=== PATIENT | female | born 1995 | race Caucasian/White ===

== ENCOUNTER 2018-05-25 18:23 | Inpatient (IN) ==
--- NOTE | 2018-05-25 18:51 | Emergency Department Note ---
Disposition Clinical Impression: Cellulitis of right thigh, Failure of outpatient treatment Disposition: Admitted As Inpatient Condition: Good Referrals: Michelle Berman CNP [Primary Care Provider] - Forms: ED Satisfaction Letter Skin/Abscess/FB HPI Chief complaint: ED Skin/Abscess/Foreign Body Stated complaint: Abscess Time Seen by Provider: 05/25/18 18:32 Source: patient Limitations: no limitations Nursing Notes Reviewed: Yes Vital Signs Reviewed: Yes HPI Narrative: Pt is a 23 year old female that noticed a boil/area of redness on her right medial thigh on Sunday/Sunday of this previous week. It was not improving on its own, so she was seen at her PCP's office on and was put on doxycycline, of which she has received 4 doses. She woke up this morning and noted that the area was far more painful, more red, and had a a raised area. She was sent from urgent care today. She notes that she has a history of "boils " in the area that have had to be lanced, but denies any history of MRSA infections that she knows of. She reports that prior to this episode, she has not had any antibiotics in the last year, but does report an allergy to amoxicillin. ROS: Constitutional: She reports subjective fevers and chills, general malaise MSK: myalgias Abdominal: nausea, no vomiting, no diarrhea All other systems negative. Home Medications Medication Instructions Recorded Confirmed Buspirone HCl [Buspar] 15 mg PO BID 01/29/18 01/29/18 LORazepam [Ativan] 1 mg PO BID PRN 01/29/18 01/29/18 traZODone [TraZODone] 50 mg PO HS 01/29/18 01/29/18 Doxycycline 05/25/18 Hydrocodone-Ibuprofen 5-200 mg 05/25/18 Allergies Allergy/AdvReac Type Severity Reaction Status Date / Time Amoxicillin [From Amoxil] Allergy Rash Verified 05/25/18 17:01 All systems ED: reviewed and negative except as stated. Review of Systems: As Per HPI Past Medical History - Past Medical History Medical history: Reports: no medical history Surgical history: Reports: non-contributory Psychiatric history: Reports: anxiety, depression - Social History Smoking Status: Current every day smoker Smokeless Tobacco Status: No Alcohol use: Reports: none Drug use: Reports: none Physical Exam - General Limitations: no limitations General appearance: alert, anxious - Head Head exam: atraumatic, normocephalic - Eye Eye exam: Present: normal appearance, PERRL, EOMI - ENT ENT exam: normal exam, normal oropharynx, mucous membranes moist - Chest Chest inspection: Present: normal inspection, symmetric chest wall rise - Respiratory Respiratory exam: Present: normal lung sounds bilaterally - Cardiovascular Cardiovascular exam: Present: regular rate, normal rhythm - Expanded Cardiovascular Exam Peripheral pulses: 2+: radial (R), radial (L), posterior tibialis (R), posterior tibialis (L), dorsalis pedis (R), dorsalis pedis (L) - Abdominal Exam Abdominal exam: Present: soft, Non-Tender - Expanded Lower Extremity Exam Upper leg exam: Present: tenderness, swelling, erythema, other (small area of open skin overlying a collection of fluid beneath the skin verified by ultrasound) 1 - 4-5 inch wide area of erythema running from anterior to posterior along the medial side - Neurological Exam Neurological exam: Present: alert, oriented X3 - Expanded Neurological Exam Motor strength - LUE: 5/5 Motor strength - RUE: 5/5 Motor strength - LLE: 5/5 Motor strength - RLE: 5/5 - Psychiatric Psychiatric exam: Present: normal affect, normal mood Course Course Narrative: Pt presented in no acute distress, but looked uncomfortable on the bed. She was tachycardic, hypertensive, and had a sub-clinical fever at 99F. Using aseptic technique, a cotton-tipped applicator was inserted into the area of maximal fluctuance from which spontaneous drainage was witnessed. Four separate applicators were used to break up loculations and express approx 3mL of bloody and purulent fluid from the wound. She tolerated this well. Pain medication was ordered. Vital Signs Temperature 99.7 F H 05/25/18 18:24 Pulse Rate 113 05/25/18 18:24 Respiratory Rate 18 05/25/18 18:24 Blood Pressure 143/96 05/25/18 18:24 O2 Sat by Pulse Oximetry 97 05/25/18 18:24 Temperature 99.7 F H 05/25/18 18:28 Pulse Rate 96 05/25/18 19:26 Respiratory Rate 18 05/25/18 19:26 Blood Pressure 131/78 05/25/18 19:26 O2 Sat by Pulse Oximetry 97 05/25/18 18:28 Oxygen Delivery Oxygen Delivery Room Air Skin/Abscess/Foreign Body - MDM Narrative Medical decision making narrative: Pt failed outpatient management of cellulitis after 48 hours of antibiotic therapy and needs to come in for IV therapy, given the exacerbation of her symptoms and development of fever, chills, and tachycardia. She is in agreement with this plan. Her vitals remained stable while she was in the department. She was given an opportunity to ask questions and all of her concerns were addressed. - Differential Diagnosis Likely: cellulitis - Medical Records Medical records reviewed: Yes I reviewed the patient's medical records. - Lab Data Lab results reviewed: Yes I reviewed the patient's lab results. Result diagrams: 05/25/18 19:35 05/25/18 19:35 Lab Results 05/25/18 05/25/18 Range/Units 19:35 19:35 WBC 11.4 H (4.3-11.1) K/mcL RBC 4.32 (3.82-4.97) M/mcL Hgb 12.4 (11.5-15.4) g/dL Hct 37.5 (35.3-44.9) % MCV 86.8 (83.0-100.0) fL MCH 28.7 (28.0-33.3) pg MCHC 33.1 (31.6-35.5) g/dL RDW 12.9 (11.5-14.5) % Plt Count 253 (140-400) K/mcL MPV 10.1 (9.4-12.4) fL Immature Gran % 0.5 (0-4) % Seg Neutrophils % 68.4 % Lymphocytes % 23.3 % Monocytes % 4.9 % Eosinophils % 2.7 % Basophils % 0.2 % Neutrophils # 7.8 (1.6-8.9) K/mcL Lymphocytes # 2.7 (0.6-4.6) K/mcL Monocytes # 0.6 (0.0-1.3) K/mcL Eosinophils # 0.3 (0.0-0.6) K/mcL Basophils # 0.0 (0.0-0.2) K/mcL Sodium 134 L (136-145) mEq/L Potassium 3.8 (3.5-5.1) mEq/L Chloride 102 (98-107) mEq/L Carbon Dioxide 26 (23-29) mEq/L BUN 11 (6-20) mg/dL Creatinine 0.67 (0.60-1.20) mg/dL Est GFR ( Amer) > 60 (> 60) Est GFR (Non-Af Amer) > 60 (> 60) BUN/Creatinine Ratio 16 (6-26) Glucose 156 H (70-105) mg/dL Calculated Osmolality 281 (280-300) Calcium 9.1 (8.6-10.3) mg/dL
[2018-05-25] MEDS ORDERED: cefTRIAXone 2,000 MG in 0.9 % Sodium Chloride Mini Bag 100 ML IVPB ONE (19:01)
[2018-05-25] MEDS ORDERED: *HR* FentaNYL (PF) 100 MCG/2 ML VIAL IVP ONE (19:18)
--- NOTE | 2018-05-25 19:27 | Emergency Department Note ---
Disposition Clinical Impression: Cellulitis of right thigh, Failure of outpatient treatment Disposition: Still a Patient Forms: ED Satisfaction Letter General Adult HPI - General Chief complaint: ED Skin/Abscess/Foreign Body Stated complaint: Abscess Time Seen by Provider: 05/25/18 18:32 Source: patient Limitations: no limitations - History of Present Illness Pain Scale: 8 - Related Data Home Medications Medication Instructions Recorded Confirmed Buspirone HCl [Buspar] 15 mg PO BID 01/29/18 01/29/18 LORazepam [Ativan] 1 mg PO BID PRN 01/29/18 01/29/18 traZODone [TraZODone] 50 mg PO HS 01/29/18 01/29/18 Doxycycline 05/25/18 Hydrocodone-Ibuprofen 5-200 mg 05/25/18 Previous Rx's Medication Instructions Recorded Sulfamethoxazole/Trimeth DS 1 each PO BID #14 tablet 05/25/18 [Bactrim DS] Allergies Allergy/AdvReac Type Severity Reaction Status Date / Time Amoxicillin [From Amoxil] Allergy Rash Verified 05/25/18 17:01 Past Medical History - Past Medical History Medical history: Reports: no medical history Surgical history: Reports: non-contributory Psychiatric history: Reports: anxiety, depression - Social History Smoking Status: Current every day smoker Smokeless Tobacco Status: No Alcohol use: Reports: none Drug use: Reports: none Physical Exam - General Limitations: no limitations General appearance: alert, anxious Course - Reevaluation(s) Reevaluation #1: ATTESTATION NOTE I examined this patient and my medical decision-making was reviewed with the Resident Physician, Tiana Robledo. I agree with the documented findings, disposition and treatment plan as described except to the extent set forth below. I have personally performed a face to face evaluation on this patient. I have reviewed and agree with the care plan. Briefly: 23-year-old female presents to the ER with redness that is worsening on her proximal right thigh. Patient was seen in urgent care center and placed on doxycycline. Despite taking it for 48 hours she has increasing redness and she said while waiting in the waiting room there is a central part that burst open and drained. Patient said she felt some fever feels achy denies chest pain or shortness breath. Her tetanus is up-to-date. She has a large approximately 8 x 4 cm erythematous area with the training ultrasound which showed cobblestoning consistent with cellulitis on the was no other acutely treatable collections of fluid. We did a sterile contact applicator to deloculated the central draining area. Patient getting 2 g IV Rocephin screening labs pending with admission anticipated. Patient's pain management with IV fentanyl and then we will then add on oral opioids. Disposition pending Time: 19:24 Vital Signs Temperature 99.7 F H 05/25/18 18:24 Pulse Rate 113 05/25/18 18:24 Respiratory Rate 18 05/25/18 18:24 Blood Pressure 143/96 05/25/18 18:24 O2 Sat by Pulse Oximetry 97 05/25/18 18:24 Temperature 99.7 F H 05/25/18 18:28 Pulse Rate 113 05/25/18 18:28 Respiratory Rate 18 05/25/18 18:28 Blood Pressure 143/96 05/25/18 18:28 O2 Sat by Pulse Oximetry 97 05/25/18 18:28 Oxygen Delivery Oxygen Delivery Room Air
[2018-05-25 19:49] LABS: Basophils % 0.2 %; Eosinophils # 0.3 K/mcL (0.0-0.6); Eosinophils % 2.7 %; Hematocrit 37.5 % (35.3-44.9); Hemoglobin 12.4 g/dL (11.5-15.4); Immature Granulocytes % 0.5 % (0-4); Lymphocytes # 2.7 K/mcL (0.6-4.6); Lymphocytes % 23.3 %; Mean Corpuscular HGB Conc 33.1 g/dL (31.6-35.5); Mean Corpuscular Hemoglobin 28.7 pg (28.0-33.3); Mean Corpuscular Volume 86.8 fL (83.0-100.0); Mean Platelet Volume 10.1 fL (9.4-12.4); Monocytes # 0.6 K/mcL (0.0-1.3); Monocytes % 4.9 %; Neutrophils # 7.8 K/mcL (1.6-8.9); Platelet Count 253 K/mcL (140-400); Red Blood Count 4.32 M/mcL (3.82-4.97); Red Cell Distribution Width 12.9 % (11.5-14.5); Segmented Neutrophils % 68.4 %
[2018-05-25 20:07] LABS: BUN/Creatinine Ratio 16 (6-26); Blood Urea Nitrogen 11 mg/dL (6-20); Calcium 9.1 mg/dL (8.6-10.3); Carbon Dioxide 26 mEq/L (23-29); Chloride 102 mEq/L (98-107); Glucose 156 mg/dL (70-105); Osmolality,Calculated 281 (280-300); Potassium 3.8 mEq/L (3.5-5.1); Sodium 134 mEq/L (136-145); eGFR For Non-African Americans > 60 (> 60)
--- NOTE | 2018-05-25 22:10 | Internal Med History&Physical ---
Date of Encounter: 05/25/18 Time of Encounter: 21:58 Internal Medicine - H&P: HPI Chief complaint: Right thigh infection Admitted From: Home History of present illness: Ms. Genao is a 23 year old female with a PMH of IVDU, anxiety, tobacco dependence, morbid obesity, and recent outpatient antibiotic use for right thigh cellulitis presents c/o worsening proximal right thigh redness and swelling for the past 7 days despite starting Doxyclycline on 05/23/18. She went to urgent care again this afternoon and was started on Bactrim DS and advised to go to the ED. She reported a central part for the area burst open and started draining while she was in the waiting room. She reports associated fever up to 100.4 F, chills, tachycardia, and right thigh pain despite taking Hydrocodone prior to arrival. She reports a history of "boils" in the area that have had to be lanced, but denies any history of MRSA infections. Patient has a history of IV Heroin use in the past but denies recent drug use since November 2017. She denies CP, SOB, abd pain, N/V/D, constipation, dysuria, flank pain, trauma, travel, or recent animal bites or scratches. Tetanus shot is up-to-date and patient had a metal nick removed from her left leg s/p fracture in 2012. Bedside ultrasound in the ED revealed cobblestoning consistent with cellulitis and no other acutely treatable collections of fluid. Past Med Surg Social Fam HX - Past Medical History Additional medical history: Diverticulosis, had metal nick in left leg s/p fracture in 2012. Psychiatric history: anxiety, depression - Past Surgical History Surgical History: other Additional surgical history: left leg metal nick removed, sigmoid colon polyp removed 01/29/18 - Social History Smoking Status: Current every day smoker Smokeless Tobacco Status: No Alcohol use: none Drug use: IV Drug Use (Remote Heroin use in November 2017) Occupational status: employed (Substance abuse drilling machine runner) Current living situation: Home - Independent Activity Level: Independent ambulation Recent Out of Country Travel Within the Last 8 Weeks: No Exposure or Possible Exposure to Illness During Travel: No - Family History Mother Hx Family Cardiac Disorders: Yes (HTN) Hx Family Endocrine Disorder: Yes (DM) Father Living Status: Still Living Internal Medicine - H&P: Meds Buspirone HCl [Buspar] 15 mg PO BID 01/29/18 [History] LORazepam [Ativan] 1 mg PO BID PRN 01/29/18 [History] traZODone [TraZODone] 50 mg PO HS 01/29/18 [History] Doxycycline 05/25/18 [History] Hydrocodone-Ibuprofen 5-200 mg 05/25/18 [History] 3 Allergy/AdvReac Type Severity Reaction Status Date / Time Amoxicillin [From Amoxil] Allergy Rash Verified 05/25/18 17:01 All Systems PM: A 10-system review of systems was performed and is negative for pertinent findings except as documented above in the HPI. - Constitutional Constitutional: chills, fatigue, fever(s), lethargy, weakness, no anorexia, no weight gain, no weight loss - EENT Eyes: no blurry vision, no diplopia Nose, mouth and throat: no sinus pain, no sore throat - Cardiovascular Cardiovascular ROS IM: palpitations, no chest pain, no dyspnea - Respiratory Respiratory: no cough, no wheezing - Gastrointestinal Gastrointestinal: cramping, no abdominal pain, no constipation, no diarrhea, no heartburn, no nausea, no vomiting - Genitourinary Menstruation: other (IUD in place) - Musculoskeletal Musculoskeletal ROS IM: myalgias, no back pain, no limited range of motion, no numbness, no tingling - Integumentary Integumentary IM: erythema, new lesions, non-healing lesions, rash, skin ulcer, sores - Neurological Neurological ROS: abnormal gait, weakness, no dizziness, no numbness, no tingling - Psychiatric Psychiatric: anxiety, depression - Endocrine Endocrine IM: fatigue, no polydipsia, no polyphagia, no polyuria - Hematologic/Lymphatic Hematologic/Lymphatic: no easy bleeding, no easy bruising - Constitutional Vitals: Temp Pulse Resp BP Pulse Ox 99.7 F H 91 18 112/63 98 05/25/18 18:28 05/25/18 21:30 05/25/18 21:30 05/25/18 21:30 05/25/18 21:30 General appearance: Present: cooperative, A&O X 3, morbidly obese, pleasant, no acute distress, answers questions appropriately - Head Head exam: Present: atraumatic, normocephalic - Eye Eye exam: Present: PERRL, conjuntiva pink, sclera anicteric Pupils: Present: PERRL - ENT ENT exam: Present: mucous membranes dry, normal oropharynx - Neck Neck exam general surgery: Present: supple, trachea midline. Absent: lymphadenopathy - Respiratory Respiratory exam: Present: CTAB. Absent: accessory muscle use, rales, rhonchi, wheezes - Cardiovascular Cardiovascular exam: Present: RRR, +S1, +S2, tachycardia. Absent: diastolic murmur, gallop, rubs, systolic murmur - GI/Abdominal GI/Abdominal exam: Present: normal bowel sounds, soft, no peritoneal signs. Absent: distended, guarding, tenderness - Extremities Exam Extremities exam: Present: normal capillary refill, warm, radial pulses palpable and symmetrical. Absent: calf tenderness, cyanotic, normal inspection (erythema right inner groin with border outlined using skin marker, palpable firmness with purulent drainage from central 1cm opening, no proximal streaking or lymphadenopathy), pedal edema - Back Exam Back exam: Present: normal inspection. Absent: CVA tenderness (L), CVA tenderness (R), paraspinal tenderness, tenderness - Neurological Exam Neurological exam: Present: alert, CN II-XII intact, oriented X3, no focal deficits. Absent: pronater drift, facial droop, speech deficit - Psychiatric Psychiatric exam: Present: anxious, normal affect - Skin Skin exam: Present: erythema (erythema right inner groin with border outlined using skin marker, palpable firmness with purulent drainage from central 1cm opening, no proximal streaking) Internal Med - H&P Results - Labs CBC & Chem 7: 05/25/18 19:35 05/25/18 19:35 - Pulse Oximetry Interpretation Digit-Finger O2 Sat by Pulse Oximetry: 98 (On room air) - Assessment and plan (1) Sepsis affecting skin Current Visit: Yes Status: Suspected Assessment and plan: Patient met two SIRS critieria with tachycardia HR 113, temperature 100.4 F ( 100.3 F today at urgent care), and right thigh cellulitis as likely source of infection. WBC count is 11.4, lactic acid level pending Blood cultures pending Wound cultures pending Patient started on IVF sepsis bolus Continue empiric IV antibiotics Cefepime and Vanc (day 1) De-escalate antibiotics based on culture results Continue close monitoring (2) Cellulitis and abscess of right lower extremity Current Visit: Yes Status: Acute Assessment and plan: Bedside ultrasound in the ED revealed cobblestoning consistent with cellulitis and no other acutely treatable collections of fluid. Continue antibiotics Wound care consulted (3) Failure of outpatient treatment Current Visit: Yes Status: Acute Assessment and plan: Worsening proximal right thigh redness and swelling for the past 7 days despite starting Doxyclycline on 05/23/18. She went to urgent care again this afternoon and was started on Bactrim DS and advised to go to the ED. (4) History of intravenous drug abuse Current Visit: No Status: Chronic Assessment and plan: Patient has a history of IV Heroin use in the past but denies recent drug use since November 2017. She works as a substance abuse drilling machine runner (5) Tobacco dependence Current Visit: Yes Status: Chronic Assessment and plan: Tobacco cessation discussed (6) Anxiety and depression Current Visit: Yes Status: Chronic Assessment and plan: Continue home meds (7) Morbid obesity with BMI of 45.0-49.9, adult Current Visit: Yes Status: Chronic Assessment and plan: Lifestyle modification (8) DVT prophylaxis Current Visit: Yes Status: Acute Assessment and plan: EPCDs - Time Spent With Patient Total time spent is greater than 50% in coordination of care (as documented) at patient's floor/unit and/or counseling patient: Sepsis Reassessment Note - Evaluation Sepsis Screen: No Definite Risk Current Stage of Sepsis: sepsis Possible Source of Sepsis: skin/soft tissue - Focused Exam Date of Encounter: 05/25/18 Time of Encounter: 22:35 Vital Signs: Vital Signs - 24 hr 05/25/18 18:24 05/25/18 18:28 05/25/18 19:26 Temperature 99.7 F H 99.7 F H Pulse Rate 113 113 96 Respiratory Rate 18 18 18 Blood Pressure 143/96 143/96 131/78 O2 Sat by Pulse Oximetry 97 97 05/25/18 20:30 05/25/18 21:30 Temperature Pulse Rate 90 91 Respiratory Rate 18 18 Blood Pressure 106/71 112/63 O2 Sat by Pulse Oximetry 98 Respiratory Exam: Present: CTA bilaterally Cardiovascular Exam: Present: tachycardia Capillary Refill: > 2 seconds Peripheral Pulse Strength: 3+ normal Peripheral Pulse Location: Radial Skin Exam: normal turgor
[2018-05-25] MEDS ORDERED: Ondansetron 4 MG/2 ML VIAL IVP PRN (22:38)
[2018-05-25] MEDS ORDERED: Naloxone 0.4 MG/ML INJ IVP PRN (22:38)
[2018-05-25] MEDS ORDERED: Acetaminophen 325 MG TABLET PO PRN (22:38)
[2018-05-25] MEDS ORDERED: Vancomycin (wt based) 1,000 MG VIAL IVPB SCH (23:00)
[2018-05-25] MEDS: *HR* HYDROcodone/Acet 5/325 mg TABLET PO PRN (23:30)
[2018-05-25] MEDS: Nicotine 14 MG PATCH.TD24 TD SCH (23:40)
[2018-05-26] MEDS: traZODone 50 MG TABLET PO SCH ×2 (00:36→20:44)
[2018-05-26] MEDS: 0.9 % Sodium Chloride 1,000 ML IVC SCH ×3 (01:31→03:41)
[2018-05-26 05:25] LABS: Basophils % 0.4 %; Eosinophils # 0.3 K/mcL (0.0-0.6); Eosinophils % 3.9 %; Hematocrit 32.9 % (35.3-44.9); Hemoglobin 10.9 g/dL (11.5-15.4); Immature Granulocytes % 0.5 % (0-4); Lymphocytes # 2.9 K/mcL (0.6-4.6); Lymphocytes % 34.2 %; Mean Corpuscular HGB Conc 33.1 g/dL (31.6-35.5); Mean Corpuscular Hemoglobin 29.4 pg (28.0-33.3); Mean Corpuscular Volume 88.7 fL (83.0-100.0); Mean Platelet Volume 10.1 fL (9.4-12.4); Monocytes # 0.6 K/mcL (0.0-1.3); Monocytes % 6.9 %; Neutrophils # 4.5 K/mcL (1.6-8.9); Platelet Count 217 K/mcL (140-400); Red Blood Count 3.71 M/mcL (3.82-4.97); Red Cell Distribution Width 12.9 % (11.5-14.5); Segmented Neutrophils % 54.1 %
[2018-05-26] MEDS: *HR* HYDROcodone/Acet 5/325 mg TABLET PO PRN ×3 (05:26→17:32)
[2018-05-26] MEDS: Cefepime HCl 2,000 MG in Water for inj. (sterile) 20 ML 20 ML IVP SCH ×2 (05:27→17:32)
[2018-05-26 05:32] LABS: INR 1.1; Prothrombin Time 12.9 Seconds (9.4-12.1)
[2018-05-26 05:42] LABS: BUN/Creatinine Ratio 12 (6-26); Blood Urea Nitrogen 7 mg/dL (6-20); Calcium 7.8 mg/dL (8.6-10.3); Carbon Dioxide 25 mEq/L (23-29); Chloride 111 mEq/L (98-107); Glucose 118 mg/dL (70-105); Osmolality,Calculated 287 (280-300); Sodium 139 mEq/L (136-145); eGFR For Non-African Americans > 60 (> 60)
--- NOTE | 2018-05-26 08:00 | Event Note ---
Date of Encounter: 05/26/18 Time of Encounter: 07:58 Patient is seen and examined at bedside with the nurse. H&P reviewed and agree with assessment and plan. Area of cellulitis appears to be improving as the erythema is no longer extending to the demarcated area that was outlined. The area of induration in the inner thigh is smaller than on arrival per the pt. Blood cultures continue to be negative and leukocytosis is resolved. We will continue to follow cultures continue IV antibiotics; and monitor vitals. Check CBC and BMP in a.m.
[2018-05-26] MEDS: *HR* LORazepam 1 MG TABLET PO PRN ×2 (08:11→20:44)
[2018-05-26] MEDS: traMADol 50 MG TABLET PO PRN (20:43)
[2018-05-26] MEDS: Nicotine 14 MG PATCH.TD24 TD SCH (20:44)
[2018-05-27] MEDS: *HR* HYDROcodone/Acet 5/325 mg TABLET PO PRN ×3 (06:46→23:12)
[2018-05-27] MEDS: Cefepime HCl 2,000 MG in Water for inj. (sterile) 20 ML 20 ML IVP SCH ×2 (06:50→17:14)
[2018-05-27] MEDS: *HR* LORazepam 1 MG TABLET PO PRN ×2 (08:18→17:14)
--- NOTE | 2018-05-27 08:57 | Internal Med Progress Note ---
Date of Encounter: 05/27/18 Time of Encounter: 08:54 - Assessment and plan (1) Cellulitis of right thigh Current Visit: Yes Status: Acute Assessment and plan: Patient with one-week history of right groin erythema and warmth that was not improving on doxycycline -Erythema seems improved on IV antibiotics -Bedside ultrasound did not reveal abscess in ED however there appears to be slight fluctuance on exam today with some drainage which was not present yesterday -We will order ultrasound of the indurated area to eval for possible abscess; if positive will consult general surgery to I&D -Now the wound is draining we will obtain culture -Consulted infectious disease for antibiotic recommendations -Continue cefepime and vancomycin -Cultures negative to date (2) Failure of outpatient treatment Current Visit: Yes Status: Acute Assessment and plan: Patient was on doxycycline for one week prior to admission with no improvement (3) Morbid obesity with BMI of 45.0-49.9, adult Current Visit: Yes Status: Chronic Assessment and plan: Counseled on lifestyle modifications (4) Tobacco dependence Current Visit: Yes Status: Chronic Assessment and plan: Counseled on smoking cessation (5) History of intravenous drug abuse Current Visit: No Status: Chronic Assessment and plan: -Patient states that she has not used IV drugs and sometime she is not in the past. -No murmurs or stigmata of endocarditis - Time Spent With Patient 25 - 35 minutes - Subjective Interval history: Patient seen and examined at bedside. Patient had no overnight events. Patient states that she has had some drainage from the wound overnight which is new. Patient has been afebrile. Nicely chest pain, shortness of breath, nausea , vomiting, diarrhea. - Constitutional Vitals: Temp Pulse Resp BP Pulse Ox 97.8 F 81 14 96/62 96 05/27/18 06:15 05/27/18 06:15 05/27/18 06:15 05/27/18 06:15 05/27/18 06:15 General appearance: Present: cooperative, A&O X 3, morbidly obese, pleasant, no acute distress, answers questions appropriately Exam: Constitutional: No acute distress, Alert Psych: AAO x 3 Cardio: regular rate and rhythm, +s1s2, no murmurs Resp: clear to ascultation bilaterally, no wheezes/rales/ronchi Abd: soft, non tender/non distended, positive bowel sounds, no gaurding/reboud/ ridgitity Extremities: Right groin cellulitis appears to be improving with less erythema and warmth; however area of induration feels unchanged and may have some fluctuance today unable to tell if this is a fluid collection. Neuro: no focal deficits appreciated Lymph: no cervical/supraclavicular adenopahty apprecitated Internal Medicine: Result - Labs CBC & Chem 7: 05/26/18 05:04 05/26/18 05:04 - ABG Interpretation ABG results: PT/INR, D-dimer PT 12.9 Seconds (9.4-12.1) H 05/26/18 05:04 Consult Discharge Plan - Plan Referrals: Michelle Berman, EDUARD [Primary Care Provider] -
[2018-05-27] MEDS: traMADol 50 MG TABLET PO PRN ×2 (09:50→17:14)
--- NOTE | 2018-05-27 11:56 | Infectious Disease Consult ---
Date of Encounter: 05/27/18 Time of Encounter: 11:56 Assessment and Plan (1) Sepsis affecting skin Status: Suspected Assessment and plan: The patient had 2 SIRS criteria on admission. Likely secondary to right thigh cellulitis. Improved. White blood cell count has normalized. Afebrile since admission. Blood cultures obtained 05/26/18 are pending 2 sets. (2) Cellulitis of right thigh Status: Acute Assessment and plan: Location: Right medial thigh. Etiology unclear. Causative organism: Unclear. Purulent. Failed outpatient oral antibiotics. Ultrasound was negative for abscess. Wound culture obtained and pending. Clinically improved based on previous skin markings and patient report. Continue vancomycin IV. Pharmacy to dose. Goal trough approximately 15. Continue cefepime 2 g IV every 12 hours. Await cultures. De-escalate if/when able. Duration of treatment depends on the clinical picture. We will likely be able to transition to by mouth antibiotics when ready for discharge. Monitor renal function and for drug toxicity and dose adjust antibiotics. (3) Failure of outpatient treatment Status: Acute (4) Morbid obesity with BMI of 45.0-49.9, adult Status: Chronic (5) Tobacco dependence Status: Chronic (6) History of intravenous drug abuse Status: Chronic Assessment and plan: Patient reports remote history of IV heroin use back in November. Check hepatitis B antigen and hepatitis C antibody. Check HIV status. (7) Anxiety and depression Status: Chronic Infectious Disease HPI - Data of Consult Patient: new to practice Consult date: 05/27/18 Requesting Physician: Dangelo Crystal MD Primary Care Provider: Michelle Berman CNP - Consult Narrative Reason for consult: Right thigh cellulitis History of present illness: Ms. Genao is a 23 year old female with a past medical history of anxiety, depression, and IV drug use with last use back in November. The patient was admitted to the hospital 05/25/18 for right medial thigh abscess and cellulitis. We are consulted 05/27/18 for antibiotic recommendations for right thigh abscess and cellulitis. Briefly, the patient is a 23-year-old female with past mental history as stated above. She states that last Sunday she noticed what appeared to be a boil should medial aspect of her right thigh. She states her symptoms progressed and sharp PCP on was placed on oral doxycycline. Her symptoms persisted and got worse and she went to the urgent care on 05/25/18. She was given a course of oral Bactrim and told to follow up in the emergency department the next day for possible I&D, but instead she came directly to the emergency department for evaluation. While at urgent care, she was noted to have fever with a MAXIMUM TEMPERATURE of 100.3. Upon arrival to the ER, she was tachycardic and had a mild leukocytosis. According to the emergency room notes, the patient had spontaneous drainage from the right thigh abscess and the ER provider proceeded to use cotton tipped applicators to break up loculations of the abscess. No cultures were obtained at that time. She had a bedside ultrasound showed findings consistent with cellulitis, but no underlying abscess. She was started on IV antibiotics and admitted to the hospital for further evaluation. Since admission, the patient's leukocytosis has resolved. She had blood cultures obtained 2 sets that are pending. She had a repeat ultrasound this morning that was negative for abscess. A wound culture was collected this morning and is pending. Currently, she is on IV vancomycin and IV cefepime. We have been asked to evaluate and make further recommendations. Day, the patient endorses a history as stated above. She reported some fevers, but no chills or rigors. She reports a headache, but no neck pain or stiffness. She denies chest pain, shortness of breath, or cough. She denies nausea, vomiting, diarrhea, or constipation. She denies abdominal pain, urinary complaints, appetite changes. She denies any vaginal discharge or abnormal vaginal bleeding. She does have an IUD and denies chance of . She denies pain in her joints or extremities except for the site of the right thigh abscess and cellulitis. The patient lives at home with her significant other. She is sexually active with one male partner in the last 12 months. She denies any alcohol use. She reports she smokes one half pack cigarettes per day. She reports using IV heroin previously, with last use back in November. She denies any known infectious history such as hepatitis, tuberculosis, or HIV. CC: Dangelo Crystal MD Past Med Surg Social Fam HX - Past Medical History Attestation: Yes The following information was validated with the patient. Source: patient, old records reviewed, nursing notes reviewed Additional medical history: Diverticulosis, had metal nick in left leg s/p fracture in 2012. Psychiatric history: anxiety, depression - Past Surgical History Surgical History: other Additional surgical history: left leg metal nick removed, sigmoid colon polyp removed 01/29/18 - Social History Smoking Status: Current every day smoker Packs per day: 0.5 Smokeless Tobacco Status: No Alcohol use: none Drug use: IV Drug Use (Remote Heroin use in November 2017) Occupational status: unemployed Current living situation: Home, With Family Activity Level: Independent ambulation Recent Out of Country Travel Within the Last 8 Weeks: No Exposure or Possible Exposure to Illness During Travel: No - Family History Mother Hx Family Cardiac Disorders: Yes (HTN) Hx Family Endocrine Disorder: Yes (DM) Father Living Status: Still Living Infectious Disease-CN:Meds Buspirone HCl [Buspar] 15 mg PO BID 05/26/18 [History] LORazepam [Ativan] 1 mg PO Q12H 05/26/18 [History] traZODone [TraZODone] 50 mg PO HS 05/26/18 [History] Buspirone HCl [Buspar] 15 mg PO BID tablet 05/28/18 [Rx] Levofloxacin [Levaquin] 750 mg PO DAILY #10 tablet 05/28/18 [Rx] Sulfamethoxazole/Trimeth DS [Bactrim DS] 1 each PO BID #20 tablet 05/28/18 [Rx] 3 Allergy/AdvReac Type Severity Reaction Status Date / Time Amoxicillin [From Amoxil] Allergy Rash Verified 05/25/18 17:01 All systems: reviewed and no additional remarkable complaints except as stated Exam - Constitutional Vitals: Temp Pulse Resp BP Pulse Ox 97.8 F 78 16 120/79 97 05/27/18 10:45 05/27/18 10:45 05/27/18 10:45 05/27/18 10:45 05/27/18 10:45 General appearance: cooperative, no acute distress, obese - Head Head exam: Present: atraumatic, normal inspection, normocephalic - Eye Eye exam: Present: EOMI, normal appearance, PERRL Pupils: Present: normal accommodation - ENT ENT exam: Present: mucous membranes moist - Neck Neck exam: Present: normal inspection - Respiratory Respiratory exam: Present: CTAB. Absent: rales, respiratory distress, rhonchi, wheezes - Cardiovascular Cardiovascular exam: Present: RRR, +S1, +S2 - GI/Abdominal GI/Abdominal exam: Present: distended, normal bowel sounds, soft. Absent: tenderness - Extremities Exam Extremities exam: Present: tenderness (Right medial thigh). Absent: normal inspection (Erythema, warmth, and tenderness noted to the medial aspect of the right thigh with a large area of induration and scabbed lesion.) - Neurological Exam Neurological exam: Present: alert, oriented X3, no focal deficits - Psychiatric Psychiatric exam: Present: normal affect, normal mood - Skin Skin exam: Present: dry, intact, normal color, warm Infectious Disease CN: Results - Labs CBC & Chem 7: 05/28/18 05:14 05/26/18 05:04 Cultures: Cultures 05/26/18 00:14 Blood Culture - Preliminary Peripheral Venipuncture Culture is incubating and being continuously monitored for growth. Final report to follow. 05/26/18 00:10 Blood Culture - Preliminary Peripheral Venipuncture Culture is incubating and being continuously monitored for growth. Final report to follow. Consult Discharge Plan - Plan Referrals: Rodger Hernandez [Partnered Physician] - 06/04/18 1:55 pm Prescriptions: Levofloxacin [Levaquin] 750 mg PO DAILY #10 tablet Sulfamethoxazole/Trimeth DS [Bactrim DS] 1 each PO BID #20 tablet - Attending Attestation I examined this patient and my medical decision-making was reviewed with the Resident Physician. I agree with the documented findings, disposition and treatment plan as described except to the extent set forth below. This is an addendum to original report dictated by Sarah Sheppard CNP. Please refer to his note for full detail. Patient is a 23-year-old woman with past medical history mentioned below presented with cellulitis of the right thigh. Patient denies any trauma, denies any insect bites, denies any shaving or waxing in that area recently. Patient was started on broad-spectrum antibiotics and is clinically doing much better today. When I saw her her symptoms were significantly improved. Patient is well-known to have a history of IV drug use in the past but states that she has not used it for quite some time. Assessment and plan currently patient with broad-spectrum antibiotics including vancomycin and cefepime. Clinically she is doing better consider switching to Bactrim and Keflex. Await cultures to finalize. Since history of IV drug use check hepatitis, B, and C and HIV status. Duration of treatment likely 2 weeks.
[2018-05-27 17:57] LABS: HIV-1&2 Antibody & p24 Ag Nonreactive (Nonreactive); Hepatitis B Surface Antigen Nonreactive (Nonreactive); Hepatitis C Virus Antibody Nonreactive (Nonreactive)
[2018-05-27] MEDS: traZODone 50 MG TABLET PO SCH (20:29)
[2018-05-27] MEDS: Nicotine 14 MG PATCH.TD24 TD SCH (20:29)
[2018-05-28 05:46] LABS: Basophils % 0.4 %; Eosinophils # 0.4 K/mcL (0.0-0.6); Eosinophils % 6.1 %; Hematocrit 36.7 % (35.3-44.9); Immature Granulocytes % 0.3 % (0-4); Lymphocytes # 3.1 K/mcL (0.6-4.6); Lymphocytes % 45.3 %; Mean Corpuscular HGB Conc 32.7 g/dL (31.6-35.5); Mean Corpuscular Hemoglobin 28.6 pg (28.0-33.3); Mean Corpuscular Volume 87.6 fL (83.0-100.0); Mean Platelet Volume 9.9 fL (9.4-12.4); Monocytes # 0.4 K/mcL (0.0-1.3); Monocytes % 6.4 %; Neutrophils # 2.8 K/mcL (1.6-8.9); Platelet Count 265 K/mcL (140-400); Red Blood Count 4.19 M/mcL (3.82-4.97); Red Cell Distribution Width 12.7 % (11.5-14.5); Segmented Neutrophils % 41.5 %
[2018-05-28] MEDS: *HR* HYDROcodone/Acet 5/325 mg TABLET PO PRN ×2 (06:16→11:46)
[2018-05-28] MEDS: Cefepime HCl 2,000 MG in Water for inj. (sterile) 20 ML 20 ML IVP SCH (06:16)
[2018-05-28 10:33] VITALS: BP 120/78
[2018-05-28] MEDS ORDERED: *HR* LORazepam 1 MG TABLET PO SCH (10:45)
--- NOTE | 2018-05-28 12:11 | Discharge Summary ---
- NOTES TO OUTPATIENT PROVIDER Notes to Outpatient Provider: Follow-up with pending blood cultures adn wound cx preliminary has been negative for 3 days. Date of Encounter: 05/28/18 Time of Encounter: 12:05 - Discharge Diagnosis (1) Cellulitis of right thigh Priority: Primary Status: Acute (2) Failure of outpatient treatment Priority: Secondary Status: Acute (3) Morbid obesity with BMI of 45.0-49.9, adult Priority: Secondary Status: Chronic (4) Tobacco dependence Priority: Secondary Status: Chronic (5) History of intravenous drug abuse Priority: Secondary Status: Chronic Hospital course: Ms. Genao is a 23 year old female with history of IV drug abuse presented with cellulitis of the right groin. Was started on IV vancomycin and cefepime with marked improvement of the demarcation area. US showed Diffuse edema without focal abscess noted in the right inner thigh. On the the center of the area drained purulent material. Culture of the material was sent, with preliminary report of no growth. ID was consulted, who agreed with the IV antibiotics. She received 4 days of IV antibiotics. Remained afebrile for the last 24 hours. Patient improved significantly on IV antibiotics and as per ID recommendations she was discharged on oral Levaquin and Bactrim. She was told to follow-up with her PCP and follow on the culture results from the wound and blood. She was counseled on smoking cessation and risks associated with IV drug abuse. She was counseled on nutrition. - Time Spent with Patient Total time spent providing and/or coordinating discharge services: - Discharge Medications Prescriptions: Levofloxacin [Levaquin] 750 mg PO DAILY #10 tablet Sulfamethoxazole/Trimeth DS [Bactrim DS] 1 each PO BID #20 tablet Home Medications: Buspirone HCl [Buspar] 15 mg PO BID 05/26/18 [History] LORazepam [Ativan] 1 mg PO Q12H 05/26/18 [History] traZODone [TraZODone] 50 mg PO HS 05/26/18 [History] Buspirone HCl [Buspar] 15 mg PO BID tablet 05/28/18 [Rx] Levofloxacin [Levaquin] 750 mg PO DAILY #10 tablet 05/28/18 [Rx] Sulfamethoxazole/Trimeth DS [Bactrim DS] 1 each PO BID #20 tablet 05/28/18 [Rx] Allergies/Adverse Reactions: 3 Allergy/AdvReac Type Severity Reaction Status Date / Time Amoxicillin [From Amoxil] Allergy Rash Verified 05/25/18 17:01 Date of admission: 05/28/18 08:12 Primary care physician: Michelle Berman CNP - Constitutional Vitals: Temp Pulse Resp BP Pulse Ox 97.9 F 79 15 120/78 97 05/28/18 10:32 05/28/18 10:32 05/28/18 10:32 05/28/18 10:32 05/28/18 10:32 General appearance: Present: cooperative, A&O X 3, morbidly obese, pleasant, no acute distress, answers questions appropriately Exam: Head: atraumatic, normocephalic, obese Eye: normal appearance, PERRL, no scleral icterus, no conjunctival injection ENT: mucous membranes moist, normal external ear exam Neck: normal inspection, trachea midline, full ROM, no carotid bruits Chest: normal inspection, symmetric chest rise Respiratory: Good respiratory effort. Bilateral breath sounds are clear without wheezing, crackles, or rhonchi. Cardiovascular: Regular rate and rhythm. s1 and s2 No clicks, rubs, gallops, or murmors. Abdomen: Bowel sounds present normoactive x-4 quadrants. Abdomen is soft, nondistended. Epigastric tenderness. No guarding or rebound. No organomegaly noted, obese Extremities: Right groin cellulitis appears to be improving with less erythema and warmth; induration area in the center is draining Neuro: Alert and oriented x4. Sensation light touch intact. Cranial nerves 2- 12 is intact. Not aphasic, gait is steady, Lymph: no cervical/supraclavicular adenopahty apprecitated Psych: Patient's affect is normal - Patient Status Disposition: Home, Self-Care Condition: Good Functional capacity at discharge: independent ambulation Overall status at discharge: patient is progressing back to baseline - Discharge Instructions Follow Up With: Rodger Hernandez [Partnered Physician] - 06/04/18 1:55 pm - Diet and Activity Activity: increase activity as tolerated Diet: advance to your usual diet
[2018-05-28] MEDS ORDERED: Aminoglycoside Consult 1 EACH MC ONE (13:58)
--- NOTE | 2018-05-28 14:22 | Infectious Disease Progress No ---
Date of Encounter: 05/28/18 Time of Encounter: 12:25 - Assessment and Plan (1) Sepsis affecting skin Status: Suspected The patient had 2 SIRS criteria on admission. Likely secondary to right thigh cellulitis. Improved. White blood cell count has normalized. Afebrile since admission. Blood cultures obtained 05/26/18 are NGTD 2 sets. (2) Cellulitis of right thigh Status: Acute Location: Right medial thigh. Etiology unclear. Causative organism: Unclear. Purulent. Failed outpatient oral antibiotics. Ultrasound was negative for abscess. Wound culture obtained and is preliminarily negative, likely secondary to antibiotic being administered before wound culture obtained. Clinically improved based on previous skin markings and patient report. Continue vancomycin IV. Pharmacy to dose. Goal trough approximately 15. Continue cefepime 2 g IV every 12 hours. Duration of treatment depends on the clinical picture. We will likely be able to transition to by mouth antibiotics when ready for discharge, recommend Bactrim DS 1 tab PO BID and Levaquin 750mg PO daily to complete a total of 14 days of treatment. Monitor renal function and for drug toxicity and dose adjust antibiotics. (3) Failure of outpatient treatment Status: Acute Likely due to inadequate source control. (4) Morbid obesity with BMI of 45.0-49.9, adult Status: Chronic (5) Tobacco dependence Status: Chronic (6) History of intravenous drug abuse Status: Chronic Patient reports remote history of IV heroin use back in November. Check hepatitis B antigen and hepatitis C antibody.--> Negative. Check HIV status. --> Negative. (7) Anxiety and depression Status: Chronic - Subjective Interval history: Patient seen and examined. No acute events noted overnight. Patient reports dramatic improvement in her symptoms. Reports scabbed lesion to the right medial thigh, but resolution of pain, redness, and warmth. Denies fevers, chills , or rigors. Denies chest pain, shortness of breath, or cough. Denies nausea, vomiting, diarrhea, or constipation. Denies abdominal pain, urinary complaints, or appetite changes. Denies oral thrush or additional skin lesions. Infect Dis PN-Objective Data - Labs CBC & Chem 7: 05/28/18 05:14 05/26/18 05:04 Exam - Constitutional Vitals: Temp Pulse Resp BP Pulse Ox 97.9 F 79 15 120/78 97 05/28/18 10:32 05/28/18 10:32 05/28/18 10:32 05/28/18 10:32 05/28/18 10:32 General appearance: cooperative, no acute distress, obese - Head Head exam: Present: atraumatic, normal inspection, normocephalic - Eye Eye exam: Present: EOMI, normal appearance, PERRL Pupils: Present: normal accommodation - ENT ENT exam: Present: mucous membranes moist - Neck Neck exam: Present: normal inspection - Respiratory Respiratory exam: Present: CTAB. Absent: rales, respiratory distress, rhonchi, wheezes - Cardiovascular Cardiovascular exam: Present: RRR, +S1, +S2 - GI/Abdominal GI/Abdominal exam: Present: distended (obese), normal bowel sounds, soft. Absent: tenderness - Extremities Exam Extremities exam: Present: tenderness (right medial thigh). Absent: pedal edema Additional comments: Right medial thigh induration with scabbed lesion with dressing C/D/I. No erythema or warmth noted. - Neurological Exam Neurological exam: Present: alert, oriented X3, no focal deficits - Psychiatric Psychiatric exam: Present: normal affect, normal mood - Skin Skin exam: Present: dry, intact, normal color, warm Consult Discharge Plan - Plan Referrals: Rodger Hernandez [Partnered Physician] - 06/04/18 1:55 pm Prescriptions: Levofloxacin [Levaquin] 750 mg PO DAILY #10 tablet Sulfamethoxazole/Trimeth DS [Bactrim DS] 1 each PO BID #20 tablet
[2018-05-28] MEDS ORDERED: traZODone 50 MG TABLET PO SCH (21:00)
== END 2018-05-28 13:59 | disposition home or self-care (01) | DRG 872 ==
LOC: EMEROO 18:23 → 3ANU 18:23 → SUATTDRO 21:36 → 3ANU 21:50
PROVIDERS: ADMIT Family Medicine; ATTEND Internal Medicine